=== PATIENT | male | born 1995 | race Caucasian/White ===

== ENCOUNTER 2024-05-10 04:32 | Emergency (ER) | payer OTHER | END 2024-05-10 06:26 | LOC: EMS 04:35 | DX: L98.9 Disorder of the skin and subcutaneous tissue, unspecified (principal); Z53.21 Procedure and treatment not carried out due to patient leaving prior to being seen by health care provider ==

== ENCOUNTER 2025-07-07 22:04 | Emergency (ER) | payer SELFPAY ==
[~2025-07-07] VITALS: Ht 172.7 cm; Wt 90.9 kg
[2025-07-07 22:14] VITALS: TEMP 98.9
[2025-07-08 00:40] VITALS: BP 113/85; PULSE 98; RESP 16; O2SAT 97
== END 2025-07-08 00:46 ==
LOC: EMS 22:04
DX: M54.2 Cervicalgia (principal); Z04.1 Encounter for examination and observation following transport accident; V29.99XA Rider (driver) (passenger) of other motorcycle injured in unspecified traffic accident, initial encounter; Y93.89 Activity, other specified; Y92.89 Other specified places as the place of occurrence of the external cause; Y99.8 Other external cause status
CPT/HCPCS: 72040; 99283